=== PATIENT | male | born 1985 | race African-American/Black ===

== ENCOUNTER 2017-03-13 22:18 | Emergency (ER) | payer MEDICAID ==
[~2017-03-13 22:18] MED LIST: AMOXIL500 MG PO; BACTRIM DS TABL1 TA1 PO; BENADRYL PO; FLEXERIL10 MG PO; KEFLEX500 MG PO; MEDROL PO; PERCOCET 5-3251 TAB PO; VOLTAREN75 MG PO; ZANTAC PO
== END 2017-03-13 22:42 | disposition home or self-care (01) ==
LOC: CED 22:18
DX: T23.101A Burn of first degree of right hand, unspecified site, initial encounter (principal); E11.9 Type 2 diabetes mellitus without complications; F17.200 Nicotine dependence, unspecified, uncomplicated; Z79.899 Other long term (current) drug therapy; X08.8XXA Exposure to other specified smoke, fire and flames, initial encounter; Y92.009 Unspecified place in unspecified non-institutional (private) residence as the place of occurrence of the external cause
CPT/HCPCS: 16000; 99283